=== PATIENT | female | born 1945 | race Caucasian/White ===

== ENCOUNTER → 2018-12-01 | Outpatient (CLI) | payer OTHER | END | disposition home or self-care (01) | LOC: PLD 10:28 → LAB SHORT 10:28 | DX: L72.0 Epidermal cyst (principal) | CPT/HCPCS: 88304 ==

== ENCOUNTER → 2019-05-28 | Outpatient (CLI) | payer OTHER ==
[2019-05-28 17:11] LABS: Alanine Aminotransfer (ALT/SGP 23 U/L (12-78); Albumin, Blood 3.6 g/dL (3.4-5.0); Alk Phos 85 U/L (40-126); Anion Gap 12 mmol/L (6-16); Aspartate Aminotrans (AST/SGOT 15 U/L (12-37); Bilirubin, Total 0.3 mg/dL (0.1-1.0); Blood Urea Nitrogen 21 mg/dL (8-24); Bun/Creatinine Ratio 29.2 (12.0-20.0); CO2, Blood 24 mmol/L (21-32); Chloride, Blood 99 mmol/L (98-108); Creatinine, Blood 0.72 mg/dL (0.40-1.00); Globulin, Blood 3.6 g/dL (2.2-4.0); Glomerular Filtration Rate >60 (60-); Glucose, Blood 286 mg/dL (70-99); Sodium, Blood 135 mmol/L (136-145); Total Protein, Blood 7.2 g/dL (6.4-8.2)
== END | disposition home or self-care (01) ==
LOC: LAB SHORT 16:55 → LAB EV 16:55
PROVIDERS: Physician Assistant
DX: B37.0 Candidal stomatitis (principal); R73.9 Hyperglycemia, unspecified
CPT/HCPCS: 80053; 83036

== ENCOUNTER 2020-07-29 10:52 | Inpatient (IN) | payer OTHER ==
[~2020-07-29] VITALS: Ht 175.3 cm; Wt 83.9 kg
[2020-07-29] MEDS ORDERED: ATOR40TA PO (11:50)
[2020-07-29 12:34] LABS: BASOPHILS ABSOLUTE AUTO 0.08 K/mm3 (0.00-0.23); BASOPHILS PERCENT AUTO 1 % (0-2); EOSINOPHILS ABSOLUTE AUTO 0.07 K/mm3 (0.00-0.68); EOSINOPHILS PERCENT AUTO 1 % (0-6); Hematocrit 42.8 % (33.0-51.0); Hemoglobin 13.7 g/dL (11.5-16.0); IMMATURE GRAN ABSOLUTE AUTO 0.06 K/mm3 (0.00-0.10); IMMATURE GRAN PERCENT AUTO 1 % (0-1); LYMPHOCYTES PERCENT AUTO 12 % (21-46); MONOCYTES ABSOLUTE AUTO 0.75 K/mm3 (0.16-1.47); MONOCYTES PERCENT AUTO 6 % (4-13); Mean Corpuscular HGB 28.7 pg (26.0-34.0); Mean Corpuscular Volume 90 fL (80-100); Mean Platelet Volume 10.5 fL (9.1-12.4); NEUTROPHILS ABSOLUTE AUTO 9.94 K/mm3 (1.96-9.15); NEUTROPHILS PERCENT AUTO 80 % (41-73); Platelet Count 182 K/mm3 (150-400); RDW Coefficient Variation 12.4 % (11.7-14.2); RDW Standard Deviation 40.9 fL (35.1-46.3); Red Blood Cell Count 4.78 M/mm3 (3.80-5.20)
[2020-07-29] MEDS ORDERED: RESVERATROL100 MG PO (12:39)
[2020-07-29] MEDS ORDERED: TURMERIC500 M2 PO ×2 (12:41→16:15)
[2020-07-29 12:47] LABS: Anion Gap 8 mmol/L (6-16); Blood Urea Nitrogen 21 mg/dL (8-24); Bun/Creatinine Ratio 24.3 (12.0-20.0); CO2, Blood 24 mmol/L (21-32); Calcium, Blood 8.4 mg/dL (8.5-10.1); Chloride, Blood 108 mmol/L (98-108); Creatinine, Blood 0.86 mg/dL (0.40-1.00); Glomerular Filtration Rate >60 (60-); Glucose, Blood 141 mg/dL (70-99); Potassium, Blood 3.9 mmol/L (3.5-5.5); Sodium, Blood 140 mmol/L (136-145)
[2020-07-29] MEDS ORDERED: BERBERINE PO (16:14)
[2020-07-29] MEDS ORDERED: RESVERATROL50 MG PO (16:16)
[2020-07-29] MEDS ORDERED: TOCO1000 PO (16:17)
[2020-07-29] MEDS ORDERED: ZINC15 PO (16:17)
[2020-07-29] MEDS ORDERED: UBID10 PO (16:17)
[2020-07-29] MEDS ORDERED: MAGNESIUM OXID500 MG PO (16:18)
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
--- NOTE | 2020-07-29 19:32 | NUR ---
SHIFT SUMMARY PT ARRIVED TO THE ROOM FROM ER AT APPROXIMATELY 1500. SHE HAS BEEN ALERT AND ORIENTED SINCE SHE ARRIVED TO THE UNIT. PAIN HAS BEEN MANAGED WITH DILAUDID. SHE PT HAS SEVERE PAIN WITH MOVEMENT. SHE WAS ABLE TO USE THE BEDPAN; UNABLE TO PLACE PENA CATHETER PT REPORTS SHE HAS AN ALLERGY TO LATEX. PLAN FOR SURGERY TOMORROW. PT TAKES MULTIPLE SUPPLEMENTS AT HOME. MAGNESIUM AND BERBERINE ORDERED R/T PT'S REQUEST. SHE REPORTS SHE DOES NOT WISH TO TAKE INSULIN TO MANAGE HER BLOOD GLUCOSE. VSS. WILL MONITOR UNTIL REPORT TO ONCOMING RN.
[2020-07-30 04:32] LABS: Source, Urine Catheter
[2020-07-30 04:33] LABS: BASOPHILS ABSOLUTE AUTO 0.05 K/mm3 (0.00-0.23); BASOPHILS PERCENT AUTO 1 % (0-2); EOSINOPHILS ABSOLUTE AUTO 0.07 K/mm3 (0.00-0.68); EOSINOPHILS PERCENT AUTO 1 % (0-6); Hematocrit 39.4 % (33.0-51.0); Hemoglobin 12.8 g/dL (11.5-16.0); IMMATURE GRAN ABSOLUTE AUTO 0.01 K/mm3 (0.00-0.10); IMMATURE GRAN PERCENT AUTO 0 % (0-1); LYMPHOCYTES ABSOLUTE AUTO 1.64 K/mm3 (0.84-5.20); LYMPHOCYTES PERCENT AUTO 25 % (21-46); MONOCYTES ABSOLUTE AUTO 0.68 K/mm3 (0.16-1.47); MONOCYTES PERCENT AUTO 10 % (4-13); Mean Corpuscular HGB 28.5 pg (26.0-34.0); Mean Corpuscular HGB Conc 32.5 g/dL (31.5-36.5); Mean Corpuscular Volume 88 fL (80-100); NEUTROPHILS PERCENT AUTO 63 % (41-73); Platelet Count 176 K/mm3 (150-400); RDW Coefficient Variation 12.6 % (11.7-14.2); RDW Standard Deviation 40.5 fL (35.1-46.3); Red Blood Cell Count 4.49 M/mm3 (3.80-5.20); White Blood Cell Count 6.55 K/mm3 (4.00-11.30)
[2020-07-30 04:36] LABS: Bilirubin, Urine Neg (Neg); Blood, Urine 1+ (Neg); Glucose Qualitative, Urine Neg (Neg); Ketones, Urine 3+ (Neg); Leukocyte Esterase, Urine 1+ (Neg); Nitrite, Urine Pos (Neg); Protein, Urine Neg (Neg); Specific Gravity, Urine 1.025 (1.003-1.022); Urobilinogen, Urine NORM (Normal)
[2020-07-30 04:45] LABS: Appearance, Urine Hazy (Clear); Color, Urine Yellow (P-Yellow)
[2020-07-30 04:47] LABS: International Normalized Ratio 0.98; Prothrombin Time Results 10.5 Sec (9.7-11.5)
[2020-07-30 04:57] LABS: Alanine Aminotransfer (ALT/SGP 15 U/L (12-78); Albumin, Blood 3.3 g/dL (3.4-5.0); Alk Phos 67 U/L (50-136); Anion Gap 8 mmol/L (6-16); Aspartate Aminotrans (AST/SGOT 8 U/L (12-37); Bilirubin, Total 0.6 mg/dL (0.1-1.0); Blood Urea Nitrogen 16 mg/dL (8-24); Bun/Creatinine Ratio 30.5 (12.0-20.0); CO2, Blood 24 mmol/L (21-32); Calcium, Blood 8.2 mg/dL (8.5-10.1); Chloride, Blood 106 mmol/L (98-108); Creatinine, Blood 0.52 mg/dL (0.40-1.00); Globulin, Blood 3.4 g/dL (2.2-4.0); Glomerular Filtration Rate >60 (60-); Glucose, Blood 126 mg/dL (70-99); Potassium, Blood 3.5 mmol/L (3.5-5.5); Sodium, Blood 138 mmol/L (136-145); Total Protein, Blood 6.7 g/dL (6.4-8.2)
[2020-07-30 05:11] LABS: Bacteria Many /hpf; Red Blood Cells, Urine Rare /hpf (0-2); Squamous Epithelial Cells Not Seen /hpf (Few); White Blood Cells, Urine 25-50 /hpf (0-5)
--- NOTE | 2020-07-30 06:05 | NUR ---
SUMMARY PT VERB ADEQUATE PAIN CONTROL USING PO AND IV PAIN MEDS.ALLOWING MINIMAL REPOSITIONING DUE TO EXTENAL ROTATION OF LLE. PT DIRECTIVE OF CARE AND ASKS QUESTIONS APPROPRIATELY TO SITUATION. PLAND FOR OR TODAY.UNABLE TO VOID TONIGHT WITH REPORTED HX DIFF STARTING STREAM.BLADDER SCAN >900. OBTAINED NON-LATEX CATHETER AND PENA WAS PLACED WITH PT VERB OF RELIEF.
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
--- NOTE | 2020-07-30 13:51 | NUR ---
DIET REQUEST FROM PT, STATING SUGAR FREE, STARCH FREE, AND GRAIN FREE. SHE ALSO DOES NOT EAT FRUITS. SHE STS THAT SHE IS ON KETO DIABETIC DIET. MAR NURSE NOTIFY TO ORDER SCRAMBLED EGGS, 5 ARAGON AND COFFEE FOR BREAKFAST, PER PT REQUEST.
--- NOTE | 2020-07-30 15:01 | NUR ---
07/30/20 1501 Mariam Diaz PT ENTERED OR WITH PENA CATHETER
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
--- NOTE | 2020-07-30 17:32 | NUR ---
SHIFT SUMMARY PODO GAMMA NAIL LEFT HIP W/ FOAM DRESSING. AO4. PT PAIN LEVEL WELL CONTROLLED AT 01/03 AFTER PACU DISCHARGE W/ FENTALNYL. PT IS CONCERN ABOUT PERSONAL DIET RESTRICTION. SHE IS SPECIFIC ABOUT NOT HAVING SUGAR, STARCH AND GRAIN IN HER FOOD. PT C/O OF IRRITATION W/ BEDPAN WHEN WE SLID IT UNDER. NO SKIN BREAKDOWN SEEN UPON ASSESSMENT.
--- NOTE | 2020-07-30 20:42 | NUR ---
PT C/O BLADDER DISCOMFORT/SPASMS. DOCTOR ORDERED DOXY TO START TONIGHT FOR LABS SUGGESTIVE OF UTI PENDING MICRO.PT HAS PENA PATENT OF DWAYNE URINE WITH SMALL AMNT SEDIMENT NOTED.WILL DO BLADDER SCAN TO CONFIRM PENA DRAINING WITHOUT DISRUPTION.I CALLED DR PULIDO AND OBTAINED ORDERS FOR PYRIDIUM BID PRN.ADVISED PT.
--- NOTE | 2020-07-31 04:58 | NUR ---
PENA INSERTED, PT TOLERATED WELL, SAMPLE SENT TO LAB.
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
--- NOTE | 2020-07-31 18:45 | NUR ---
SHIFT SUMMARY PATIENT UP TO CHAIR THIS AFTERNOON. BACK TO BED AT DINNER TIME. (MOVES VERY SLOWLY R/T PAIN W/MOVEMENT.) THEN SLEPT. TOLERATING DIET. FC DRAINING WELL. PATIENT REPORTS BLADDER SPASMS IMPROVED TODAY. PLAN FOR D/C FC TOMORROW AND MONITOR. AQUACEL DRESSINGS TO L HIP C/D/I. CIRC CHECKS WNL. VSS. RA. REPORT TO VIVI FRANK.
--- NOTE | 2020-08-01 04:00 | NUR ---
SHIFT SUMMARY: PT POD#2 FOR L HIP RODDING. A&O X4. AQUACEL DRESSINGS C/D/I X3. PT VERY PAINFUL AND ANXIOUS WITH REPOSITONING. BEING MEDICATED WITH 5MG OXY Q4 PER EMAR. LEFT HIP SWOLLEN. ICE PACK IN PLACE. PENA PATENT AND DRAINING ORANGE URINE. PT COMPLAINING OF BLADDER PAIN THIS MORNING. WILL GIVE PYRIDIUM PER ORDERS. CBGS STABLE WITHOUT NEED FOR INSULIN COVERAGE.
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
--- NOTE | 2020-08-01 16:08 | NUR ---
SHIFT SUMMARY: PATIENT IS POD 2 FOR LEFT HIP RODDING. SHE IS ALERT AND ORIENTED X4 WITH STABLE VITAL SIGNS. AQUALCEL DRESSING IS C/D/I X3. SHE IS BEING MEDICATED FOR PAIN WITH OXY Q4, AND DILAUDID WITH PT/OT. SHE CURRENTLY HAS ICE ON THE LEFT HIP. PENA WAS TAKEN OUT TODAY WITHOUT COMPLICATIONS. SHE WAS ABLE TO URINATE WITH PT EARLIER TODAY. CBG'S HAVE BEEN STABLE WITHOUT THE NEED FOR INSULIN. PATIENT HAS HER COMPUTER IN FRONT OF HER, AND IS RECLINING IN HER CHAIR. CALL LIGHT IS WITHIN REACH. WILL CONTINUE TO MONITOR UNTIL ONCOMING NIGHTSHIFT NURSE COMES TO RECIEVE REPORT.
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
--- NOTE | 2020-08-01 23:00 | NUR ---
F/U FACIAL SWELLING. PT REPORTS DECREASE IN JAW SWELLING AFTER PO BENADRYL. NO SWELLING NOTED AT THIS TIME. WILL CONT TO MONITOR.
--- NOTE | 2020-08-02 04:15 | NUR ---
SHIFT SUMMARY POD 3 S/P LEFT HIP RODDING. AQUACEL TO LEFT HIP CDI. NO ACUTE CHANGES THIS SHIFT. LLE ELEVATED WITH ICE CHLOE. PAIN MANAGED WITH REPOSITIONING AND PO MEDICATION. STAND/PIVOT TRANSFER WITH 1 ASSIST/GB/FWW. PT ANXIOUS AT START OF SHIFT BUT APPEARS TO HAVE CALMED DOWN. SEE PREVIOUS NOTE. DAUGHTER AT BEDSIDE UNTIL APPROX 1999, VERY HELPFUL AND ATTENTIVE. STATES SHE LIVES WITH PATIENT AND IS A DERMATOLOGY NURSE PRACTITIONER AT [employer]. PT IS CURRENTLY RESTING IN BED WITH EYES CLOSED AND CALL LIGHT IN REACH. PLAN TO WORK WITH THERAPY TODAY AND POSSIBLE D/C HOME WITH . WILL CONT TO MONITOR PATIENT FOR CHANGES AND GIVE REPORT TO ONCOMING RN.
[2020-08-02 05:17] LABS: BASOPHILS ABSOLUTE AUTO 0.04 K/mm3 (0.00-0.23); BASOPHILS PERCENT AUTO 1 % (0-2); EOSINOPHILS ABSOLUTE AUTO 0.14 K/mm3 (0.00-0.68); EOSINOPHILS PERCENT AUTO 2 % (0-6); Hematocrit 33.2 % (33.0-51.0); Hemoglobin 10.7 g/dL (11.5-16.0); IMMATURE GRAN ABSOLUTE AUTO 0.02 K/mm3 (0.00-0.10); IMMATURE GRAN PERCENT AUTO 0 % (0-1); LYMPHOCYTES ABSOLUTE AUTO 2.03 K/mm3 (0.84-5.20); LYMPHOCYTES PERCENT AUTO 28 % (21-46); MONOCYTES PERCENT AUTO 11 % (4-13); Mean Corpuscular HGB 28.2 pg (26.0-34.0); Mean Corpuscular HGB Conc 32.2 g/dL (31.5-36.5); Mean Corpuscular Volume 87 fL (80-100); Mean Platelet Volume 10.1 fL (9.1-12.4); NEUTROPHILS ABSOLUTE AUTO 4.32 K/mm3 (1.96-9.15); NEUTROPHILS PERCENT AUTO 59 % (41-73); Platelet Count 177 K/mm3 (150-400); RDW Coefficient Variation 12.5 % (11.7-14.2); RDW Standard Deviation 40.2 fL (35.1-46.3); White Blood Cell Count 7.35 K/mm3 (4.00-11.30)
[2020-08-02 05:46] LABS: Alanine Aminotransfer (ALT/SGP 8 U/L (12-78); Albumin, Blood 2.6 g/dL (3.4-5.0); Albumin/Globulin Ratio 0.7 (0.8-1.8); Alk Phos 53 U/L (50-136); Anion Gap 7 mmol/L (6-16); Aspartate Aminotrans (AST/SGOT 6 U/L (12-37); Bilirubin, Total 0.6 mg/dL (0.1-1.0); Blood Urea Nitrogen 14 mg/dL (8-24); Bun/Creatinine Ratio 29.2 (12.0-20.0); CO2, Blood 26 mmol/L (21-32); Calcium, Blood 8.4 mg/dL (8.5-10.1); Chloride, Blood 105 mmol/L (98-108); Creatinine, Blood 0.48 mg/dL (0.40-1.00); Globulin, Blood 3.8 g/dL (2.2-4.0); Glomerular Filtration Rate >60 (60-); Glucose, Blood 110 mg/dL (70-99); Phosphorus, Blood 3.2 mg/dL (2.5-4.9); Potassium, Blood 3.7 mmol/L (3.5-5.5); Sodium, Blood 138 mmol/L (136-145); Total Protein, Blood 6.4 g/dL (6.4-8.2)
--- NOTE | 2020-08-02 18:43 | NUR ---
SHIFT SUMMARY PT HAD PT AND OT THERAPY TODAY. PT TOLERATE MINIMAL ASSIST IN BEDSIDE COMMODE W/ WALKER. POSSIBLE DCD SNF/HOME TOMORROW. CBG WNL, HAS NOT BEEN MEDICATED TODAY. SHE IS ALSO TAKING DOXY FOR ECOLI/UTI. WT BEARING TOLERATED. PT HAS NOT HAVE BM TODAY. IV HAS BEEN DC'D PT C/O OF PAIN AND LUMP ON IV SITE. ADD'T SNACK ALTERNATIVES ON THE FRIDGE.
--- NOTE | 2020-08-02 19:52 | NUR ---
SHIFT SUMMARY PT IS POD# 3 FOR L HIP REPAIR. PT IS A 1 PERSON ASSIST WITH GAIT BELT AND WALKER FOR TRANSFERS. BOWEL CARE WAS STARTED TODAY, NO BM YET, DR. COTA AWARE. PLAN FOR DISCHARGE TO SNF WHEN STABLE. VSS. WILL MONITOR UNTIL REPORT TO ONCOMING RN.
--- NOTE | 2020-08-03 06:06 | NUR ---
SHIFT SUMMARY LYING IN SEMI FOWLERS WITH EYES CLOSED. HAS RESTED OFF AND ON THROUGHOUT SHIFT. MEDICATED FOR PAIN X2, NEXT TIME PAIN MEDS ARE AVAILABLE WILL BE 7AM. DRESSING TO LEFT HIP IS C/D/I. DENIES FURTHER NEEDS OR WANTS AT THIS TIME. SAFETY MEASURES IN PLACE. WILL CONTINUE TO MONITOR AND GIVE HAND OFF TO ONCOMING SHIFT USING SBAR.
--- NOTE | 2020-08-03 11:58 | NUR ---
Patient is sitting up in bed and alert. Patient tells me that her rehab. In the hospital is not going well and that she will be going to a rehab. facility in the near future. Patient talks about the support she has from her daughter and her concerns about rehab. I listen empathically, reinforce helpful attitudes and practices and provide compaionship and prayer. Patient responds well and shows signs of increase hope. Patient states after the prayer that she does believe that her Heavenly Father will help her get through this. I will continue to remain avialble to patient and family.
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
== END 2020-08-03 16:40 | DRG 481 ==
LOC: ER 10:52 → SURS 13:24
PROVIDERS: Emergency Medicine; Hospitalist; Orthopaedic Surgery; ADMIT Internal Medicine
PROC: 0QS734Z Reposition Left Upper Femur with Internal Fixation Device, Percutaneous Approach (ICD-10-PCS; principal; 2020-07-30 12:15)
DX: S72.142A Displaced intertrochanteric fracture of left femur, initial encounter for closed fracture (principal); N39.0 Urinary tract infection, site not specified; B96.20 Unspecified Escherichia coli [E. coli] as the cause of diseases classified elsewhere; E11.9 Type 2 diabetes mellitus without complications; F41.9 Anxiety disorder, unspecified; I10 Essential (primary) hypertension; K59.00 Constipation, unspecified; E78.5 Hyperlipidemia, unspecified; W17.89XA Other fall from one level to another, initial encounter; R01.1 Cardiac murmur, unspecified
CPT/HCPCS: 36415; 73502; 80048; 80053; 81001; 82947; 83735; 84100; 85025; 85610; 87077; 87086; 87186; 93005; 93010; 94762; 96374-59; 96375-59; 96376-59; 97110; 97112; 97162; 97166; 97530; 97535; 99285-25; A9270; A9270-GY; C1713; J1170; J1644; J1650; J2250; J2405; J2704; J3010; J7120; Q0163; U0002

== ENCOUNTER → 2020-10-10 | Outpatient (CLI) | payer OTHER ==
[~2020-10-10] MED LIST: ATOR40TA PO; BERBERINE PO; MAGNESIUM OXID500 MG PO; RESVERATROL100 MG PO; RESVERATROL50 MG PO; TOCO1000 PO; TURMERIC500 M2 PO; UBID10 PO; ZINC15 PO
== END | disposition home or self-care (01) ==
LOC: LAB SHORT 17:10 → LAB EV 17:10
DX: N39.0 Urinary tract infection, site not specified (principal)
CPT/HCPCS: 87077; 87086; 87186

== ENCOUNTER → 2023-07-08 | Outpatient (CLI) | payer OTHER | LOC: LAB SHORT 12:30 → LAB 12:30 | DX: M54.9 Dorsalgia, unspecified (principal); R30.0 Dysuria | CPT/HCPCS: 87077; 87086; 87186 ==